=== PATIENT | female | born 1975 | race Caucasian/White ===

== ENCOUNTER 2023-12-22 14:42 | Emergency (ER) | payer OTHER ==
[2023-12-22 14:49] VITALS: BP 155/83; PULSE 132; RESP 19; TEMP 99.1; BMI 31.8
[2023-12-22] MEDS ORDERED: ACETAMINOPHEN 325 MG TABLET (FP) ONE (15:47)
[2023-12-22] MEDS: ACETAMINOPHEN 325 MG TABLET (FP) PO ONE (15:49)
== END 2023-12-22 16:53 | disposition home or self-care (01) ==
LOC: JERFT 14:42
DX: J06.9 Acute upper respiratory infection, unspecified (principal); B34.9 Viral infection, unspecified; J45.20 Mild intermittent asthma, uncomplicated; R06.02 Shortness of breath; R53.1 Weakness; R53.81 Other malaise; R53.83 Other fatigue; R07.89 Other chest pain; R05.9 Cough, unspecified; Z20.822 Contact with and (suspected) exposure to COVID-19
CPT/HCPCS: 0241U-QW; 99283-25